=== PATIENT | female | born 1955 | race Caucasian/White ===

== ENCOUNTER 2021-02-20 16:42 | Emergency (ER) | payer MEDICARE, OTHER ==
[2021-02-20 17:42] LABS: HEMOGLOBIN 13.5 gm/dl (12.3-15.3); RED BLOOD COUNT 4.52 M/UL (4.00-5.10); WHITE BLOOD COUNT 5.2 K/UL (4.5-11.0)
[2021-02-20 18:09] LABS: BUN/CREATININE RATIO 23 (0-10)
== END 2021-02-20 21:45 | disposition home or self-care (01) ==
LOC: ER1 16:42
PROVIDERS: Physician Assistant
DX: R00.2 Palpitations (principal); Z90.49 Acquired absence of other specified parts of digestive tract; Z88.1 Allergy status to other antibiotic agents; Z88.6 Allergy status to analgesic agent; I11.9 Hypertensive heart disease without heart failure
CPT/HCPCS: 71045; 80053; 82550; 82553; 83874; 84484; 85025; 93005; 93242; 99285

== ENCOUNTER → 2021-03-15 | Outpatient (CLI) | payer MEDICARE, OTHER | LOC: ECHO 13:00 | DX: R06.02 Shortness of breath (principal); I08.1 Rheumatic disorders of both mitral and tricuspid valves | CPT/HCPCS: ECHO; 93306 ==